=== PATIENT | female | born 1980 | race Caucasian/White ===

== ENCOUNTER 2017-03-03 11:28 | Outpatient (CLI) | payer MEDICAID | END 2017-03-03 12:20 | disposition home or self-care (01) | LOC: LC 11:28 | PROVIDERS: ATTEND Specialist | PROC: 4A1HXCZ Monitoring of Products of Conception, Cardiac Rate, External Approach (ICD-10-PCS; principal; 2017-03-03) | DX: O09.523 Supervision of elderly multigravida, third trimester (principal); Z3A.37 37 weeks gestation of pregnancy | CPT/HCPCS: 59025 ==

== ENCOUNTER 2017-04-01 02:07 | Inpatient (IN) | payer MEDICAID ==
--- NOTE | 2017-04-01 02:10 | Non Stress Test Report ---
Non Stress Test Datetime Report Generated by CPN: 04/01/2017 02:09 DEMOGRAPHIC EGA NST: 37.1 INDICATION Indication for Study: Ordered by Provider Indication for Study (NST) Other: [place] VITAL SIGNS Temperature - NST: 98.0 Pulse - NST: 104 RESP - NST: 16 NBPSYS NST: 129 NBPDIA NST: 78 MONITORING Monitor Explained: Monitor Explained; Test Explained; Patient Verbalized Understanding Time on Monitor: 03/03/2017 11:45 Time off Monitor: 03/03/2017 12:10 NST Duration: 25 NST INTERVENTIONS NST Interventions: Reposition Patient BABY A: [id number] BABY A Movement : Present Contraction Frequency : 0 FHR Baseline : 130 Accelerations : 15X15 Decelerations : None Variability : Moderate 6-25bpm NST Review: Meets Criteria for Reactive NST NST Review and Verified By : Ele Melton RNC NST Results: Reactive NST REPORT Report Trigger: Send Report
[2017-04-01 02:52] LABS: APPEARANCE,URINE SLIGHTLY-CLOUDY; BILIRUBIN,URINE NEGATIVE (NEGATIVE); GLUCOSE, URINE NEGATIVE (NEGATIVE); KETONES,URINE NEGATIVE (NEGATIVE); LEUKOCYTE ESTERASE,URINE SMALL (NEGATIVE); NITRITE,URINE NEGATIVE (NEGATIVE); PROTEIN,URINE NEGATIVE (NEGATIVE); UROBILINOGEN,URINE NEGATIVE mg/dL (<2.0)
[2017-04-01 03:06] LABS: URINE BARBITURATES SCREEN NEGATIVE; URINE METHADONE SCREEN NEGATIVE; URINE OPIATES LOW NEGATIVE; URINE PHENCYCLIDINE SCREEN NEGATIVE
[2017-04-01] MEDS ORDERED: RINGERS SOLUTION,LACTATED 1,000 ML IV PRN (06:23)
[2017-04-01] MEDS ORDERED: RINGERS SOLUTION,LACTATED 1,000 ML IV ONE (06:23)
[2017-04-01] MEDS ORDERED: PENICILLIN G-K 5 MILLION UNIT VIAL ONE ×3 (06:26→14:27)
[2017-04-01] MEDS ORDERED: PENICILLIN G POTASSIUM 5,000,000 UNIT in DEXTROSE 5%-WATER 100 ML IV ONE (06:30)
[2017-04-01 06:48] LABS: HEMATOCRIT 29.5 % (36.0-47.0); HEMOGLOBIN 9.8 g/dL (12.0-15.5); HGB HCT DIFFERENCE -0.1; MEAN CORPUSCULAR HEMOGLOBIN 26.3 pg (27.0-33.4); MEAN CORPUSCULAR HGB CONC 33.2 g/dL (32.0-36.0); MEAN CORPUSCULAR VOLUME 79 fl (80-97); RED BLOOD COUNT 3.72 10^6/uL (3.72-5.28); RED CELL DISTRIBUTION WIDTH 14.1 % (11.5-14.0); SEGMENTED NEUTROPHILS % (AUTO) 85.3 % (42-78)
[2017-04-01 06:49] LABS: ABSOLUTE LYMPHOCYTES (AUTO) 1.2 10^3/uL (0.5-4.7); ABSOLUTE MONOCYTES (AUTO) 0.8 10^3/uL (0.1-1.4); ABSOLUTE NEUT (AUTO) 11.9 10^3/uL (1.7-8.2); BASOPHILS % (AUTO) 0.1 % (0-2); EOSINOPHILS % (AUTO) 0.1 % (0-6); LYMPHOCYTES % (AUTO) 8.6 % (13-45); MONOCYTES % (AUTO) 5.9 % (3-13)
[2017-04-01] MEDS ORDERED: EPHEDRINE SULFATE INJ 50 MG/1 ML AMPULE ONE (06:55)
[2017-04-01] MEDS ORDERED: FENTANYL CITRATE INJ/PF 100 MCG/2 ML AMPUL ONE (06:56)
[2017-04-01] MEDS ORDERED: BUPIVACAINE HCL 0.25 % INJ/PF (2.5 MG/1 ML) 30 ML VIAL ONE (06:56)
[2017-04-01] MEDS ORDERED: FENTANYL/BUPIVACAINE/NS/PF 200 MCG/100 ML RTUINJ EPI ONE ×2 (06:56→14:05)
[2017-04-01] MEDS ORDERED: EPHEDRINE SULFATE INJ 50 MG/1 ML AMPULE IV PRN (07:00)
[2017-04-01] MEDS ORDERED: BUPIVACAINE HCL 0.25 % INJ/PF (2.5 MG/1 ML) 30 ML VIAL INFIL ONE (07:00)
[2017-04-01] MEDS ORDERED: BENZOIN/ALOE VERA/STORAX/TOLU TINCTURE 60 ML TP PRN (07:00)
[2017-04-01] MEDS ORDERED: FENTANYL/BUPIVACAINE/NS/PF 200 MCG/100 ML RTUINJ EPI PRN (07:00)
[2017-04-01] MEDS ORDERED: FENTANYL CITRATE INJ/PF 100 MCG/2 ML AMPUL IV PRN (08:47)
[2017-04-01] MEDS ORDERED: MISOPROSTOL 0.2 MG TABLET PR PRN (08:50)
[2017-04-01] MEDS ORDERED: OXYTOCIN/NORMAL SALINE 20 UNIT/1,000 ML RTUINJ IV PRN ×2 (08:50→12:36)
[2017-04-01] MEDS ORDERED: LIDOCAINE 1% INJ-PF (10 MG/ML) 30 ML SDV INJ PRN (08:50)
[2017-04-01] MEDS: PENICILLIN G POTASSIUM 2,500,000 UNIT in DEXTROSE 5%-WATER 50 ML IV SCH ×3 (10:40→18:29)
--- NOTE | 2017-04-01 11:03 | L&D Progress Notes ---
PROGRESS NOTES Datetime Report Generated by CPN: 04/01/2017 11:03 PROGRESS NOTE Impression: Normal Progression of Labor Plan: Continue Present Management Comment: Pt had srom of copious amount of meconium stained fluid with exam. VAGINAL EXAM Dilatation: 4 Effacement: 80 Station: -2 (Annotations: Data stored by CPN on behalf of user) FETUS A Monitoring: External US FHR Category: Category I : 41.2 Estimated Weight (gm): 3800 Presentation: Vertex SIGNATURE SIGNATURE: [id number] SIGNATURE: [id number] Signature: with User ID: [email or web address]
--- NOTE | 2017-04-01 12:33 | L&D Progress Notes ---
PROGRESS NOTES Datetime Report Generated by CPN: 04/01/2017 12:33 PROGRESS NOTE Procedures: Sterile Vag Exam Plan: Augmentation Comment: augment with pitocin, cont gbs prophylaxis VAGINAL EXAM Dilatation: 7 Effacement: 80 Station: -1 FETUS A Monitoring: External US FHR Category: Category I FETUS C SIGNATURE: [id number];[id number] Signature: with User ID: [email or web address]
[2017-04-01] MEDS ORDERED: OXYTOCIN/NORMAL SALINE 20 UNIT/1,000 ML RTUINJ ONE (12:40)
[2017-04-01] MEDS ORDERED: BUPIVACAINE HCL 0.5 % INJ/PF 30 ML SDV ONE (14:02)
[2017-04-01] MEDS ORDERED: DIBUCAINE 1% OINTMENT 28 GM TP PRN (19:18)
[2017-04-01] MEDS ORDERED: DIPH/PERTUSS(ACELL)/TETANUS VAC/PF 0.5 ML SYR (>=10YO) IM PRN (19:18)
[2017-04-01] MEDS ORDERED: ZOLPIDEM TARTRATE 5 MG TABLET PO PRN (19:18)
[2017-04-01] MEDS ORDERED: BENZOCAINE/MENTHOL AEROSOL SPRAY 56 ML TOP PRN (19:18)
[2017-04-01] MEDS ORDERED: MEASLES,MUMPS&RUBELLA VACC/PF 0.5 ML VIAL SUBCUT PRN (19:18)
[2017-04-01] MEDS ORDERED: ACETAMINOPHEN WITH CODEINE #3 TABLET PO PRN ×2 (19:18)
--- NOTE | 2017-04-01 20:47 | Admission Physical ---
Datetime Report Generated by CPN: 04/01/2017 20:46 CURRENT ADMISSION Chief Complaint: Uterine Contractions Indication for Induction: Not Applicable Admit Plan: Admit to Unit; Initiate Labor Protocol ALLERGIES Medication Allergies: No Medication Allergies: No Known Allergies (04/01/2017) Medication Allergies: No Known Allergies (03/03/2017) Latex: No Latex Allergies Food Allergies: No Food allergies OBSTETRICAL HISTORY EDC: 03/23/2017 00:00 : 1 Para: 0 Term: 0 : 0 SAB: 0 IAB: 0 Ectopic: 0 Livin Cesareans: 0 VBACs: 0 Multiple Births: 0 Gestational Diabetes: No Rh Sensitization: No Incompetent Cervix: No ADRIEL: No Infertility: No ART Treatment: No Uterine Anomaly: No IUGR: No Hx Previous C/S: No Macrosomia: No Hx Loss/Stillborn: No PIH: No Hx : No Placenta Previa/Abruption: No Depression/PP Depression: No PTL/PROM: No Post Hemorrhage: No Current Procedures: Ultrasound; NST Obstetrical History Comments: G1 - current SEE RECORDS Alcohol: No Marijuana : No Cocaine: No Other Illicit Drugs: No Cigarettes: Never Smoker. [id number] MEDICAL HISTORY Diabetes: No Blood Transfusion: No Pulmonary Disease (Asthma, TB): No Breast Disease: No Hypertension: No Pharmacoepidemiologist Surgery: No Heart Disease: No Hosp/Surgery: No Autoimmune Disorder: Yes Anesthetic Complications: No Kidney Disease: No Abnormal Pap Smear: No Neuro/Epilepsy: No Psychiatric Disorders: No Other Medical Diseases: No Hepatitis/Liver Disease: No Significant Family History: No Varicosities/Phlebitis: No Trauma/Violence : No Thyroid Dysfunction: No Medical History Comments: HS-skin disorder INFECTIOUS HISTORY Gonorrhea: No Genital Herpes: No Chlamydia: No Tuberculosis: No Syphilis: No Hepatitis: No HIV/AIDS Exposure: No Rash or Viral Illness: Unknown HPV: No Infectious History Comments: facial rash - eczema PHYSICAL EXAM General: Normal HEENT: Normal Neurologic: Normal Thyroid: Normal Heart: Normal Lungs: Normal Breast: Normal Back: Normal Abdomen: Normal Genitourinary Exam: Normal Extremities: Normal DTRs: Normal Pelvic Type: Adequate Vital Signs: Reviewed VAGINAL EXAM Dilatation: 7 Dilatation: 4 Effacement: 80 Effacement: 80 Station: -1 Station: -2 (Annotations: Data stored by CPN on behalf of user) FETUS A EGA: 41.2 Monitoring: External US FHR- Baseline: 140 Variability: Moderate 6-25bpm Accelerations: 10X10 Decelerations: None FHR Category: Category I Estimated Weight (gm): 3800 Presentation: Vertex PLANS FOR LABOR AND DELIVERY Labor and Delivery: None Pain Management: Epidural Other Pain Management Plans: see how it goes Feeding Preference: Breast Benefit of Breast Feed Discussed: Yes Circumcision: N/A INFORMED CONSENT Signature: with User ID: [email or web address]
[2017-04-01] MEDS ORDERED: AMPICILLIN SOD/SULBACTAM 3 GM VIAL ONE (21:01)
--- NOTE | 2017-04-01 21:05 | Delivery Summary ---
Del Sum A-C Datetime Report Generated by CPN: 04/01/2017 21:05 DELIVERY PERSONNEL DELIVERY PERSONNEL: [id number];[id number];[id number];[id number] Delivery Doctor:: Geneva Mclean MD Labor and Delivery Nurse:: Velia Mason RNfinancial services manager Nurse:: Malissa Shore RN Saw Boss:: Mary Burt RN Nursery Nurse:: Kalli Eisenberg RN Nursery Nurse:: HEATH Cheng/ARMATURE WINDER REPAIRER: Wojciech Odonnell, PUBLICIST MATERNAL INFORMATION Delivery Anesthesia: Epidural Medications After Delivery: Pitocin Bolus-Please Comment Estimated Blood Loss (ml): 250 Maternal Complications: None Provider Comments: Pt progressed to complete and pushing. Head delivered ALCON with compound hand to neck. Hand grasped and post shoulder delivered easily followed by body. [employer] BROKER/OP bulb suctioned. Cord clamped and cut. Placenta spont and intact. Female with apgars 8 and 9. Mom and baby doing well. LABOR SUMMARY EDC: 03/23/2017 00:00 No. Babies in Womb: 1 Attempted: No Labor Anesthesia: Epidural LABOR INFORMATION Reason for Induction: Not Applicable Onset of Labor: 03/31/2017 23:00 Complete Dilatation: 04/01/2017 17:05 Oxytocin: Augmentation Group B Beta Strep: Positive Antibiotics # of Doses: 3 Antibiotics Time of Last Dose: 1431 Name of Antibiotic Given: PCN Steroids Given: None Reason Steroids Not Administered: Not Applicable MEMBRANES Membranes Rupture Method: Spontaneous Rupture of Membranes: 04/01/2017 10:56 Length of Rupture (hr): 7.42 Amniotic Fluid Color: Heavy Meconium Amniotic Fluid Amount: Large Amniotic Fluid Odor: Normal STAGES OF LABOR Stage 1 hr: 18 Stage 1 min: 5 Stage 2 hr: 1 Stage 2 min: 16 Stage 3 hr: 0 Stage 3 min: 5 Total Time in Labor hr: 19 Total Time in Labor min: 26 VAGINAL DELIVERY Episiotomy: None Laceration Extension: First Degree Laceration Type: Vaginal Laceration Repair: Yes Laceration Repair Note: with 2-0 chromic CSECTION DELIVERY Primary Indication: N/A Secondary Indication: N/A CSection Urgency: N/A CSection Incidence: N/A Labor: N/A Elective: N/A CSection Incision: N/A BABY A INFORMATION Delivery Date/Time: 04/01/2017 18:21 Method of Delivery: Vaginal Born in Route : No : N/A Forceps: N/A Vacuum Extraction: N/A Shoulder Dystocia : No PRESENTATION/POSITION BABY A Presentation: Cephalic Cephalic Presentation: Vertex Vertex Position: Left Occipital Anterior Breech Presentation: N/A PLACENTA INFORMATION BABY A Placenta Delivery Time : 04/01/2017 18:26 Placenta Method of Delivery: Spontaneous Placenta Status: Delivered SCORES BABY A Heart Rate 1 min: >100 bpm Resp Effort 1 min: Good Cry Reflex Irritability 1 min: Cough or Sneeze or Pulls Away Muscle Tone 1 min: Active Motion Color 1 min: Body Tyhee, Extremities Blue Resuscitation Effort 1 min: Tactile Stimulation SCORE 1 MIN: 9 Heart Rate 5 min: >100 bpm Resp Effort 5 min: Good Cry Reflex Irritability 5 min: Cough or Sneeze or Pulls Away Muscle Tone 5 min: Active Motion Color 5 min: Body Tyhee, Extremities Blue Resuscitation Effort 5 min: Tactile Stimulation SCORE 5 MIN: 9 INFORMATION BABY A Gestational Age at Delivery: 41.2 Gestational Status: Late Term- 41- 41.6 Weeks Infant Outcome : Liveborn Infant Condition : Stable Infant Sex: Female IDENTIFICATION BABY A Verification Date/Time: 04/01/2017 18:56 ID Band Number: [id number] Mother's Name Verified: Yes RN Verifying Infant: AHan Mason RN Additional Verifying Personnel: SteffanieHan Maria TeresaLiveRail RN WEIGHT/LENGTH BABY A Birthweight (gm): 3611 Infant Weight (lb): 7 Infant Weight (oz): 15 Length (in): 20.00 Length (cm): 50.80 CORD INFORMATION BABY A No. Cord Vessels: 3 Nuchal Cord : N/A Cord Blood Taken: Yes-For Storage (Mom's Blood type +) Suction: Mouth; Nose ASSESSMENT BABY A Complications: Multiple Variable Decels; Meconium; Polyhydramnios Physical Findings at Delivery: Within Normal Limits; Caput Succedaneum; Molding of the Head Physical Findings- Other: See full nursery assessment Respirations: Appears Normal Skin to Skin: Yes Skin to Skin Time (min): 60 Rip/Mould Operator/ALS Called : No Infant Care By: Paris Eisenberg RN/Van Schroeder RN Transferred To: Remains with Mother BABY B INFORMATION : N/A SIGNATURES Signature: with User ID: [email or web address]
[2017-04-01] MEDS: AMPICILLIN SOD/SULBACTAM 3 GM VIAL IV SCH (21:18)
[2017-04-01] MEDS: IBUPROFEN 800 MG TABLET PO SCH (22:19)
[2017-04-02] MEDS: AMPICILLIN SOD/SULBACTAM 3 GM VIAL IV SCH (02:28)
[2017-04-02] MEDS: IBUPROFEN 800 MG TABLET PO SCH ×3 (06:20→21:28)
[2017-04-02 07:50] LABS: HEMATOCRIT 23.8 % (36.0-47.0); HGB HCT DIFFERENCE 0.2; MEAN CORPUSCULAR HEMOGLOBIN 26.6 pg (27.0-33.4); MEAN CORPUSCULAR HGB CONC 33.5 g/dL (32.0-36.0); MEAN CORPUSCULAR VOLUME 79 fl (80-97); RED CELL DISTRIBUTION WIDTH 14.3 % (11.5-14.0)
[2017-04-02] MEDS: SENNOSIDES/DOCUSATE 8.6-50 MG 1 EACH TABLET PO SCH (09:45)
[2017-04-02] MEDS: FERROUS SULFATE 325 MG TABLET PO SCH ×2 (09:45→17:37)
[2017-04-02] MEDS: DOCUSATE SODIUM 100 MG CAPSULE PO SCH ×2 (09:45→17:38)
[2017-04-02] MEDS: PRENATAL VITAMIN W-O CA NO5/FE FUMARATE/FA CAPSULE PO SCH (09:45)
--- NOTE | 2017-04-02 09:52 | PDOC PROGRESS REPORT ---
Subjective-OB Subjective: Post Delivery Day: 1 36 year old. Denies any needs at this time, states lochia is stable, pain well controlled, bonding with baby well, well, voiding without difficulty. Physical Exam (OB) Vital Signs: Temp Pulse Resp BP Pulse Ox 98.3 F 87 16 115/71 99 04/02/17 08:17 04/02/17 08:17 04/02/17 08:17 04/02/17 08:17 04/02/17 08:17 Intake & Output 04/01/17 04/02/17 04/03/17 06:59 06:59 06:59 Weight 105.85 kg - Lochia Lochia Amount: Scant < 10 ml Lochia Color: Rubra/Red - Abdomen Description: Soft Hernia Present: No Fundal Description: Firm, Midline Fundal Height: u/u - u/2 Objective-Diagnostic Laboratory: 04/02/17 07:34 04/02/17 07:34 WBC 13.0 H RBC 3.00 L Hgb 8.0 L Hct 23.8 L MCV 79 L MCH 26.6 L MCHC 33.5 RDW 14.3 H Plt Count 190 Assessment and Plan(PN) - Assessment and Plan (1) Acute blood loss anemia Is this a current diagnosis for this admission?: Yes Plan: ferrous sulfate increase dietary iron (2) Delivery normal Is this a current diagnosis for this admission?: Yes Plan: routine pp care - Time Spent with Patient Time with patient: Less than 15 minutes Critical Time spent with patient: Less than 15 minutes Medications reviewed and adjusted accordingly: Yes - Disposition Anticipated Discharge: Home Within: within 24 hours
[2017-04-02] MEDS: AMPICILLIN SODIUM/SULBACTAM NA 3 GM in NORMAL SALINE 100 ML IV SCH ×2 (10:01→14:09)
[2017-04-03] MEDS: IBUPROFEN 800 MG TABLET PO SCH (05:50)
[2017-04-03 08:16] VITALS: BP 126/75
--- NOTE | 2017-04-03 08:47 | PDOC DISCHARGE SUMMARY ---
Final Diagnosis Discharge Date: 04/03/17 - Final Diagnosis (1) Acute blood loss anemia Is this a current diagnosis for this admission?: Yes (2) Delivery normal Is this a current diagnosis for this admission?: Yes Discharge Data - Discharge Medication Home Medications: Pnv No.122/Iron/Folic Acid [ Multi Tablet] 1 tab PO DAILY 03/03/17 Docusate Sodium [Colace 100 mg Capsule] 100 mg PO BID #60 capsule 04/03/17 Ferrous Sulfate [Feosol 325 mg Tablet] 325 mg PO BID #60 tablet 04/03/17 Ibuprofen [Motrin 800 mg Tablet] 800 mg PO Q8 #60 tablet 04/03/17 Gestational Age: 41.2 Reason(s) for Admission: Induction of Labor Procedures: NST Intrapartum Procedure(s): Spontaneous Vaginal Delivery - [place] Data Baby 1 Female at 1 minute: 9 at 5 minutes: 9 Weight: 3611 kg Home with Mother: Yes Complications: No - Diagnosis Test Laboratory: Temp Pulse Resp BP Pulse Ox 98.1 F 78 16 126/75 H 98 04/03/17 07:35 04/03/17 07:35 04/03/17 07:35 04/03/17 07:35 04/03/17 07:35 04/01/17 04/01/17 04/02/17 02:15 06:37 07:34 RBC 3.72 3.00 L Hgb 9.8 L 8.0 L Hct 29.5 L 23.8 L Urine Opiates Screen NEGATIVE - Discharge information/Instructions Discharge Activity: Activity As Tolerated, Pelvic Rest Discharge Diet: Regular Disposition: HOME, SELF-CARE Follow up with: [facility] in: 4, Weeks
[2017-04-03] MEDS: FERROUS SULFATE 325 MG TABLET PO SCH (09:27)
[2017-04-03] MEDS: PRENATAL VITAMIN W-O CA NO5/FE FUMARATE/FA CAPSULE PO SCH (09:27)
[2017-04-03] MEDS: SENNOSIDES/DOCUSATE 8.6-50 MG 1 EACH TABLET PO SCH (09:28)
[2017-04-03] MEDS: DOCUSATE SODIUM 100 MG CAPSULE PO SCH (09:28)
== END 2017-04-03 11:44 | disposition home or self-care (01) | DRG 775 ==
LOC: LC 02:07 → LR 06:50 → 2S 20:43
PROVIDERS: ADMIT Specialist; ATTEND Specialist
PROC: 10E0XZZ Delivery of Products of Conception, External Approach (ICD-10-PCS; principal; 2017-04-01)
PROC: 0HQ9XZZ Repair Perineum Skin, External Approach (ICD-10-PCS; 2017-04-01)
DX: O99.214 Obesity complicating childbirth (principal); D62 Acute posthemorrhagic anemia; O99.824 Streptococcus B carrier state complicating childbirth; O70.0 First degree perineal laceration during delivery; O77.0 Labor and delivery complicated by meconium in amniotic fluid; O76 Abnormality in fetal heart rate and rhythm complicating labor and delivery; O40.3XX0 Polyhydramnios, third trimester, not applicable or unspecified; O90.81 Anemia of the puerperium; E66.01 Morbid (severe) obesity due to excess calories; Z3A.41 41 weeks gestation of pregnancy; Z37.0 Single live birth; Z68.35 Body mass index [BMI] 35.0-35.9, adult
CPT/HCPCS: 36415; 80307; 81005; 85025; 85027; 86592; 86850; 86900; 86901; 94760; J0295; J2540; J2590; J3010; J3490